=== PATIENT | female | born 1985 | race American Indian/Alaskan Native ===

== ENCOUNTER 2016-07-29 19:40 | Emergency (ER) | payer SELFPAY ==
[2016-07-29 20:19] VITALS: BP 150/102
[2016-07-29 20:56] LABS: Basophils % (Auto) 0.4 % (0.0-1.8); Eosinophils % (Auto) 0.3 % (0.0-4.3); Hematocrit 35.5 % (30.3-42.9); Hemoglobin 11.7 gm/dl (10.1-14.3); Mean Corpuscular HGB Conc 33 % (30-34); Mean Corpuscular Hemoglobin 31 pg (28-32); Mean Corpuscular Volume 94 fl (79-97); Platelet Count 244 K/mm3 (140-440); Red Blood Count 3.78 M/mm3 (3.65-5.03); Red Cell Distribution Width 13.4 % (13.2-15.2); White Blood Count 5.9 K/mm3 (4.5-11.0)
[2016-07-29 21:07] LABS: Anion Gap 19 mmol/L; Blood Urea Nitrogen 9 mg/dL (7-17); Calcium 9.1 mg/dL (8.4-10.2); Carbon Dioxide 23 mmol/L (22-30); Chloride 95.4 mmol/L (98-107); Glucose 88 mg/dL (65-100); Potassium 4.4 mmol/L (3.6-5.0); Sodium 133 mmol/L (137-145)
[2016-07-30 00:03] LABS: Bilirubin,Urine NEG (Negative); Blood,Urine NEG (Negative); Ketones,Urine NEG (Negative); Leukocyte Esterase,Urine NEG (Negative); Nitrite,Urine NEG (Negative); Protein,Urine <15 mg/dL mg/dL (Negative); Urobilinogen,Urine < 2.0 mg/dL (<2.0); WBC,Urine < 1.0 /HPF (0.0-6.0)
--- NOTE | 2016-07-31 12:25 | ED Elopement Review ---
ED Pt Elopement review - Results review Lab results: Laboratory Tests 07/29/16 07/29/16 07/29/16 20:27 20:27 Unknown WBC 5.9 RBC 3.78 Hgb 11.7 Hct 35.5 MCV 94 MCH 31 MCHC 33 RDW 13.4 Plt Count 244 Lymph % (Auto) 29.5 [place] % (Auto) 11.8 H Eos % (Auto) 0.3 Baso % (Auto) 0.4 Lymph # 1.7 [place] # 0.7 Eos # 0.0 Baso # 0.0 Seg Neutrophils % 58.0 Seg Neutrophils # 3.4 Sodium 133 L Potassium 4.4 Chloride 95.4 L Carbon Dioxide 23 Anion Gap 19 BUN 9 Creatinine 0.6 L Estimated GFR > 60 BUN/Creatinine Ratio 15.00 Glucose 88 Calcium 9.1 Troponin T < 0.010 Urine Color Yellow Urine Turbidity Clear Urine pH 6.0 Ur Specific [place] 1.015 Urine Protein <15 mg/dl Urine Glucose (UA) Neg Urine Ketones Neg Urine Blood Neg Urine Nitrite Neg Urine Bilirubin Neg Urine Urobilinogen < 2.0 Ur Leukocyte Esterase Neg Urine WBC (Auto) < 1.0 Urine RBC (Auto) 2.0 U Epithel Cells (Auto) < 1.0 Urine HCG, Qual Negative EKG NL - Call Back decision Pt Call Back Decision: No action required
== END 2016-07-29 20:30 | disposition left against medical advice (07) ==
LOC: ED 19:40
DX: R07.9 Chest pain, unspecified (principal); Z53.21 Procedure and treatment not carried out due to patient leaving prior to being seen by health care provider
CPT/HCPCS: 36415; 80048; 81001; 81025; 84484; 85025; 93005; 93010